=== PATIENT | female | born 1995 | race African-American/Black ===

== ENCOUNTER 2017-09-05 15:19 | Emergency (ER) | payer SELFPAY ==
[2017-09-05 15:22] VITALS: BP 151/77; PULSE 99; RESP 20; TEMP 99.5; O2SAT 99
[2017-09-05] MEDS ORDERED: PENI500T PO (16:19)
--- NOTE | 2017-09-05 16:21 | PD ---
HPI Chief Complaint: ENT Complaint Time Seen by Provider: 16:14 Travel History International Travel<30 days: No Contact w/Intl Traveler<30days: No Traveled to known affect area: No History of Present Illness HPI 22-year-old female presents to the emergency department for evaluation of sore throat, body aches that started yesterday. She also states she has left ear pain. Current pain is 7/10, aching and throbbing. No exacerbating or alleviating factors. She has no chronic medical problems and takes no prescribed medications. Mild severity. [facility] Social History Alcohol Use: Yes Tobacco Use: Yes Substance Use: Yes (Marijuana) Review of Systems Except as stated in HPI: all other systems reviewed are Neg Physical Exam Narrative GENERAL: Well-nourished, well-developed female patient, afebrile. SKIN: Focused skin assessment warm/dry. HEAD: Normocephalic. Atraumatic. ENT: Mucosa pink and moist. Bilateral tonsils are 2+ with exudates, erythematous. No uvular edema. No uvular, palatal, or tonsillar deviation. Airway patent. Nasal turbinates appear normal without nasal blood, purulent drainage or septal hematoma. Bilateral tympanic membranes clear without erythema or perforation. EYES: No scleral icterus. No injection or drainage. NECK: Supple, trachea midline. No JVD or lymphadenopathy. CARDIOVASCULAR: Regular rate and rhythm without murmurs, gallops, or rubs. RESPIRATORY: Breath sounds equal bilaterally. No accessory muscle use. Lung sounds are clear to auscultation. GASTROINTESTINAL: Abdomen soft, non-tender, nondistended. MUSCULOSKELETAL: No cyanosis, or edema. BACK: Nontender without obvious deformity. No CVA tenderness. Data Data Last Documented VS Vital Signs Date Time Temp Pulse Resp B/P (MAP) Pulse Ox O2 Delivery O2 Flow Rate FiO2 09/05/17 15:22 99.5 99 20 151/77 (101) 99 MDM Medical Decision Making Medical Screen Exam Complete: Yes Emergency Medical Condition: Yes Medical Record Reviewed: Yes Differential Diagnosis Strep pharyngitis versus viral pharyngitis versus upper respiratory infection Narrative Course 22-year-old female presents to the emergency department for evaluation of sore throat, left ear pain, body aches that started yesterday. Physical exam reveals exudates on bilateral tonsils. No evidence of peritonsillar abscess. She will be discharged with a prescription for Pen-Vee K. The patient was discharged in stable condition with instructions, including return instructions and follow up instructions. Diagnosis Primary Impression: Tonsillitis Referrals: Primary Care Physician call for appointment Patient Instructions: General Instructions, Tonsillitis (ED) Additional Instructions: Take antibiotic as directed until gone. Warm salt water gargles. [id number] Tylenol/ibuprofen as needed for pain. Follow-up with a primary care physician. Return to the emergency department for any acute worsening of symptoms. Med/Other Pt SpecificInfo: Prescription(s) given Scripts Penicillin V Potassium (Penicillin V Potassium) 500 Mg Tab 500 MG PO Q8H for Infection for 10 Days, #30 TAB 0 Refills Prov: Jessica Duran 09/05/17 Disposition: 01 DISCHARGE HOME Condition: Stable Jessica Duran September 05, 2017 16:20
== END 2017-09-05 16:25 | disposition home or self-care (01) ==
LOC: NEPK 15:19
DX: J03.90 Acute tonsillitis, unspecified (principal); F12.90 Cannabis use, unspecified, uncomplicated; Z72.0 Tobacco use
CPT/HCPCS: 99283